=== PATIENT | male | born 1955 | race Caucasian/White ===

== ENCOUNTER 2021-03-09 11:59 | Emergency (ER) | payer OTHER ==
[2021-03-09 12:10] VITALS: BMI 31.3
[2021-03-09] MEDS ORDERED: SODIUM CHLORIDE 1,000 ML IV STA ×2 (13:39→18:23)
[2021-03-09] MEDS ORDERED: ACETAMINOPHEN 1000 MG/100 ML VIAL (NON FORMULARY) IVPB ONE (13:39)
[2021-03-09] MEDS ORDERED: ACETAMINOPHEN INJECTION 100 ML IVPB ONE (13:45)
[2021-03-09 14:30] LABS: BASO % 0.7 % (0-2.0); EOS % 0.8 % (0-4.5); HEMATOCRIT 45.8 % (35.4-49); HEMOGLOBIN 14.3 GM/dL (11.7-16.9); LYMPH % 16.3 % (8-40); MCH 20.1 pg (25.7-33.7); MCHC 31.2 g/dl (32.0-35.9); MEAN CELL VOLUME 64.4 fl (80-96); MEAN PLT VOLUME 8.4 fl (7.5-11.1); MONO % 7.1 % (3.8-10.2); NEUT % 75.1 % (42.8-82.8); PLATELET COUNT 357 10^3/uL (134-434); WHITE BLOOD COUNT 14.1 K/mm3 (4.0-10.0)
[2021-03-09 14:31] LABS: PH,URINE 6.5 (5.0-8.0); URINE APPEARANCE CLEAR; URINE BILIRUBIN NEGATIVE (NEGATIVE); URINE COLOR YELLOW; URINE GLUCOSE (UA) 3+ (NEGATIVE); URINE KETONE TRACE (NEGATIVE); URINE LEUK ESTERASE NEGATIVE (NEGATIVE); URINE NITRITE NEGATIVE (NEGATIVE); URINE PROTEIN NEGATIVE (NEGATIVE); URINE UROBILINOGEN 0.2 mg/dL (0.2-1.0)
[2021-03-09 14:44] LABS: INR 0.9 (0.83-1.09); PROTHROMBIN TIME (PATIENT) 10.9 SEC (9.7-13.0)
[2021-03-09 14:58] LABS: ALBUMIN 4.3 g/dl (3.4-5.0); CALCIUM 9.7 mg/dL (8.5-10.1)
[2021-03-09 15:01] LABS: CREATININE 0.8 mg/dL (0.55-1.3)
[2021-03-09 15:03] LABS: BILIRUBIN,TOTAL 0.5 mg/dL (0.2-1)
[2021-03-09 15:09] LABS: BLOOD UREA NITROGEN 14.4 mg/dL (7-18); TOT PROT 7.9 g/dl (6.4-8.2)
[2021-03-09 15:33] LABS: ANISOCYTOSIS 1+; MACROCYTOSIS 0; PLATELET ESTIMATE NORMAL; TARGET CELLS 1+; TEAR DROP CELLS 1+
[2021-03-09 18:19] LABS: LACTIC ACID 3.2 mmol/L (0.4-2.0)
[2021-03-09 18:52] VITALS: BP 124/85; PULSE 98; TEMP 98.6
== END 2021-03-09 18:58 | disposition left against medical advice (07) ==
LOC: JER 11:59
PROC: 3E0333Z Introduction of Anti-inflammatory into Peripheral Vein, Percutaneous Approach (ICD-10-PCS; principal; 2021-03-09)
PROC: 3E0337Z Introduction of Electrolytic and Water Balance Substance into Peripheral Vein, Percutaneous Approach (ICD-10-PCS; 2021-03-09)
PROC: 3E0337Z Introduction of Electrolytic and Water Balance Substance into Peripheral Vein, Percutaneous Approach (ICD-10-PCS; 2021-03-09)
DX: E87.2 Acidosis (principal); K56.609 Unspecified intestinal obstruction, unspecified as to partial versus complete obstruction; R10.9 Unspecified abdominal pain
CPT/HCPCS: 36415; 74177-TC; 80053; 81003; 83605; 83690; 85025; 85610; 87086; 93005; 93010; 99285-25; J0131; Q9967

== ENCOUNTER 2021-03-10 10:22 | Emergency (ER) | payer OTHER ==
[2021-03-10 10:50] VITALS: BP 104/68; PULSE 100; TEMP 97.6; BMI 34.4
[2021-03-10] MEDS ORDERED: ACETAMINOPHEN 1000 MG/100 ML VIAL (NON FORMULARY) IVPB ONE (12:43)
[2021-03-10] MEDS ORDERED: LACTATED RINGERS SOLUTION 1000 ML INFUS.BAG IV ONE (12:43)
[2021-03-10 13:06] LABS: CALCIUM 8.5 mg/dL (8.5-10.1); MAGNESIUM 2.4 mg/dL (1.8-2.4)
[2021-03-10 13:09] LABS: CREATININE 0.7 mg/dL (0.55-1.3)
[2021-03-10] MEDS ORDERED: ACETAMINOPHEN INJECTION 100 ML IVPB ONE (13:09)
[2021-03-10 13:11] LABS: BILIRUBIN,TOTAL 0.4 mg/dL (0.2-1); TOT PROT 6.3 g/dl (6.4-8.2)
[2021-03-10 13:15] LABS: ALBUMIN 3.4 g/dl (3.4-5.0); BASO % 0.5 % (0-2.0); EOS % 2.7 % (0-4.5); HEMATOCRIT 41.4 % (35.4-49); HEMOGLOBIN 12.8 GM/dL (11.7-16.9); LYMPH % 29.8 % (8-40); MEAN CELL VOLUME 64.3 fl (80-96); MONO % 6.4 % (3.8-10.2); NEUT % 60.6 % (42.8-82.8); PLATELET COUNT 287 10^3/uL (134-434); RBC 6.45 M/mm3 (4.00-5.60); RDW 16.1 % (11.9-15.9); WHITE BLOOD COUNT 12.6 K/mm3 (4.0-10.0)
[2021-03-10 13:20] LABS: MCH 19.9 pg (25.7-33.7)
[2021-03-10] MEDS ORDERED: DEXTROSE 5%-WATER - 1,000 ML IV ONE (13:34)
[2021-03-10] MEDS ORDERED: DEXTROSE 5%-WATER - 500 ML IV ONE (13:34)
== END 2021-03-10 16:10 | disposition home or self-care (01) ==
LOC: JER 10:22
PROC: 3E0333Z Introduction of Anti-inflammatory into Peripheral Vein, Percutaneous Approach (ICD-10-PCS; principal; 2021-03-10)
PROC: 3E033GC Introduction of Other Therapeutic Substance into Peripheral Vein, Percutaneous Approach (ICD-10-PCS; 2021-03-10)
DX: K56.609 Unspecified intestinal obstruction, unspecified as to partial versus complete obstruction (principal); R10.84 Generalized abdominal pain
CPT/HCPCS: 36415; 74019-TC-FY; 80053; 83605; 83735; 85025; 99284-25; C9803; J0131; U0003; U0005

== ENCOUNTER 2023-10-10 10:09 | Inpatient (IN) | payer OTHER ==
[2023-10-10 10:22] VITALS: BMI 31.3
[2023-10-10] MEDS ORDERED: SODIUM CHLORIDE 0.9% 500 ML INFUS.BAG IV ONE ×3 (11:07→15:00)
[2023-10-10] MEDS ORDERED: ONDANSETRON 4 MG/2 ML VIAL IVPUSH ONE (11:07)
[2023-10-10] MEDS ORDERED: ACETAMINOPHEN 1000 MG/100 ML BAG IVPB ONE (11:07)
[2023-10-10] MEDS ORDERED: ONDANSETRON 4 MG/2 ML VIAL ONE (11:24)
[2023-10-10] MEDS ORDERED: ACETAMINOPHEN INJECTION 100 ML IVPB ONE (11:24)
[2023-10-10 11:27] LABS: BASO % 0.1 % (0-2.0); EOS % 3.7 % (0-4.5); HEMATOCRIT 42.3 % (35.4-49); HEMOGLOBIN 13.3 GM/dL (11.7-16.9); LYMPH % 8.6 % (8-40); MCH 20.3 pg (25.7-33.7); MCHC 31.3 g/dl (32.0-35.9); MEAN CELL VOLUME 64.7 fl (80-96); MONO % 4.9 % (3.8-10.2); NEUT % 82.7 % (42.8-82.8); PLATELET COUNT 252 10^3/uL (134-434); RBC 6.54 M/mm3 (4.00-5.60); RDW 16.1 % (11.9-15.9); WHITE BLOOD COUNT 7.8 K/mm3 (4.0-10.0)
[2023-10-10 12:09] LABS: POTASSIUM 4.4 mmol/L (3.5-5.1)
[2023-10-10 12:13] LABS: ALBUMIN 3.6 g/dl (3.4-5.0)
[2023-10-10 12:14] LABS: BLOOD UREA NITROGEN 21.2 mg/dL (7-18); MAGNESIUM 1.7 mg/dL (1.8-2.4)
[2023-10-10 12:17] LABS: CREATININE 1.1 mg/dL (0.55-1.3)
[2023-10-10 12:18] LABS: BILIRUBIN,TOTAL 0.5 mg/dL (0.2-1); TOT PROT 6.8 g/dl (6.4-8.2)
[2023-10-10 12:20] LABS: LACTIC ACID 2.4 mmol/L (0.4-2.0)
[2023-10-10] MEDS ORDERED: MAGNESIUM 1GM/D5W - 1 GM/100 ML IVPB IVPB ONE (12:20)
[2023-10-10] MEDS ORDERED: MAGNESIUM SULFATE IN WATER 2 GM/50 ML IVPB IVPB ONE (12:23)
[2023-10-10 12:26] LABS: ANISOCYTOSIS 2+; MACROCYTOSIS 0
[2023-10-10] MEDS ORDERED: DEXTROSE 5%-LACTATED RINGERS 1,000 ML IV SCH (18:15)
[2023-10-10] MEDS: ATORVASTATIN CA 10 MG TABLET (FP) PO SCH (21:06)
[2023-10-10] MEDS: INSULIN ASPART SLIDING SCALE (NOVOLOG) 1 VIAL SQ SCH (21:07)
[2023-10-10] MEDS ORDERED: NORTRIPTYLINE HCL 50 MG CAPSULE PO SCH (22:00)
[2023-10-11] MEDS: INSULIN ASPART SLIDING SCALE (NOVOLOG) 1 VIAL SQ SCH ×4 (06:19→21:26)
[2023-10-11] MEDS ORDERED: GLIMEPIRIDE 2 MG TABLET PO SCH (07:00)
[2023-10-11] MEDS: GABAPENTIN 100 MG CAPSULE PO SCH (10:21)
[2023-10-11] MEDS: SOLIFENACIN SUCCINATE 5 MG TAB PO SCH (10:21)
[2023-10-11] MEDS: LISINOPRIL 10 MG TABLET PO SCH (10:21)
[2023-10-11] MEDS: buPROPion HCL 75 MG TABLET PO SCH (10:21)
[2023-10-11] MEDS: metoPROLOL SUCCINATE 25 MG TAB.SR.24H (FP) PO SCH (10:21)
[2023-10-11] MEDS: TAMSULOSIN HCL 0.4 MG CAP PO SCH (10:21)
[2023-10-11] MEDS: ENOXAPARIN NA (PORCINE) 40 MG/0.4 ML DISP.SYRIN SQ SCH (10:22)
[2023-10-11] MEDS: EMPAGLIFLOZIN (JARDIANCE) 10 MG TABLET PO SCH (10:23)
[2023-10-11] MEDS: TOLTERODINE TARTRATE LA 4 MG CAP.SR.24H (FP) PO SCH (10:23)
[2023-10-11] MEDS: DIVALPROEX SODIUM 500 MG TABLET E.C. PO SCH (10:25)
[2023-10-11] MEDS: ACETAMINOPHEN 325 MG TABLET (FP) PO PRN ×2 (10:25→16:23)
[2023-10-11 10:34] LABS: BASO % 0.2 % (0-2.0); EOS % 12.2 % (0-4.5); HEMOGLOBIN 11.2 GM/dL (11.7-16.9); LYMPH % 27.9 % (8-40); MCH 20.1 pg (25.7-33.7); MCHC 31.2 g/dl (32.0-35.9); MEAN CELL VOLUME 64.5 fl (80-96); MEAN PLT VOLUME 8.8 fl (7.5-11.1); MONO % 7.8 % (3.8-10.2); NEUT % 51.9 % (42.8-82.8); PLATELET COUNT 218 10^3/uL (134-434); RBC 5.57 M/mm3 (4.00-5.60); WHITE BLOOD COUNT 8.6 K/mm3 (4.0-10.0)
[2023-10-11 10:48] LABS: POTASSIUM 4.3 mmol/L (3.5-5.1)
[2023-10-11 10:56] LABS: BLOOD UREA NITROGEN 13.6 mg/dL (7-18); MAGNESIUM 2.1 mg/dL (1.8-2.4)
[2023-10-11 10:59] LABS: CREATININE 0.6 mg/dL (0.55-1.3); PHOSPHOROUS 2.5 mg/dL (2.5-4.9)
[2023-10-11 11:00] LABS: BILIRUBIN,TOTAL 0.5 mg/dL (0.2-1); TOT PROT 5.3 g/dl (6.4-8.2)
[2023-10-11 11:04] LABS: ALBUMIN 2.7 g/dl (3.4-5.0)
[2023-10-11] MEDS: NORTRIPTYLINE HCL 25 MG CAPSULE PO SCH (21:26)
[2023-10-11] MEDS: ATORVASTATIN CA 10 MG TABLET (FP) PO SCH (21:26)
[2023-10-12] MEDS: INSULIN ASPART SLIDING SCALE (NOVOLOG) 1 VIAL SQ SCH ×4 (06:39→22:33)
[2023-10-12] MEDS: ACETAMINOPHEN 325 MG TABLET (FP) PO PRN (08:31)
[2023-10-12] MEDS: TAMSULOSIN HCL 0.4 MG CAP PO SCH (08:32)
[2023-10-12] MEDS: GABAPENTIN 100 MG CAPSULE PO SCH (10:04)
[2023-10-12] MEDS: LISINOPRIL 10 MG TABLET PO SCH (10:04)
[2023-10-12] MEDS: metoPROLOL SUCCINATE 25 MG TAB.SR.24H (FP) PO SCH (10:04)
[2023-10-12] MEDS: SOLIFENACIN SUCCINATE 5 MG TAB PO SCH (10:04)
[2023-10-12] MEDS: buPROPion HCL 75 MG TABLET PO SCH (10:04)
[2023-10-12] MEDS: ENOXAPARIN NA (PORCINE) 40 MG/0.4 ML DISP.SYRIN SQ SCH (10:05)
[2023-10-12] MEDS: DIVALPROEX SODIUM 500 MG TABLET E.C. PO SCH (10:06)
[2023-10-12] MEDS: TOLTERODINE TARTRATE LA 4 MG CAP.SR.24H (FP) PO SCH (10:06)
[2023-10-12] MEDS: EMPAGLIFLOZIN (JARDIANCE) 10 MG TABLET PO SCH (10:07)
[2023-10-12] MEDS: NORTRIPTYLINE HCL 25 MG CAPSULE PO SCH (22:32)
[2023-10-12] MEDS: ATORVASTATIN CA 10 MG TABLET (FP) PO SCH (22:33)
[2023-10-13] MEDS: INSULIN ASPART SLIDING SCALE (NOVOLOG) 1 VIAL SQ SCH ×2 (06:09→11:46)
[2023-10-13] MEDS: TAMSULOSIN HCL 0.4 MG CAP PO SCH (08:27)
[2023-10-13 08:52] VITALS: RESP 16
[2023-10-13] MEDS: ENOXAPARIN NA (PORCINE) 40 MG/0.4 ML DISP.SYRIN SQ SCH (10:27)
[2023-10-13] MEDS: SOLIFENACIN SUCCINATE 5 MG TAB PO SCH (10:27)
[2023-10-13] MEDS: buPROPion HCL 75 MG TABLET PO SCH (10:27)
[2023-10-13] MEDS: GABAPENTIN 100 MG CAPSULE PO SCH (10:28)
[2023-10-13] MEDS: EMPAGLIFLOZIN (JARDIANCE) 10 MG TABLET PO SCH (10:28)
[2023-10-13] MEDS: DIVALPROEX SODIUM 500 MG TABLET E.C. PO SCH (10:28)
[2023-10-13] MEDS: TOLTERODINE TARTRATE LA 4 MG CAP.SR.24H (FP) PO SCH (10:28)
[2023-10-13] MEDS: LISINOPRIL 10 MG TABLET PO SCH (10:59)
[2023-10-13] MEDS: metoPROLOL SUCCINATE 25 MG TAB.SR.24H (FP) PO SCH (10:59)
[2023-10-13 14:39] VITALS: BP 128/80; PULSE 76; TEMP 97.5
== END 2023-10-13 15:09 | disposition home or self-care (01) | DRG 390 ==
LOC: JER 10:09 → INTOOBSV 16:11 → UNDOADMOB 16:11 → JERBED 16:11 → J6S 18:27 → OBSVTOIN 10-11 11:49
PROVIDERS: ADMIT Internal Medicine; ATTEND Internal Medicine
DX: K56.600 Partial intestinal obstruction, unspecified as to cause (principal); E11.9 Type 2 diabetes mellitus without complications; I10 Essential (primary) hypertension; F41.9 Anxiety disorder, unspecified; E78.5 Hyperlipidemia, unspecified; R32 Unspecified urinary incontinence; F31.9 Bipolar disorder, unspecified; F25.9 Schizoaffective disorder, unspecified; E87.6 Hypokalemia
CPT/HCPCS: 36415; 74019-TC-FY; 74177-TC; 80053; 82962; 83605; 83690; 83735; 84100; 85025; 87635; 99285-25; G0378; J0131

== ENCOUNTER 2024-02-21 15:07 | Emergency (ER) | payer OTHER ==
[2024-02-21 16:06] VITALS: BP 102/61; PULSE 95; RESP 17; TEMP 97.9; BMI 31.3
[2024-02-21] MEDS: ACETAMINOPHEN 500 MG TABLET (FP) PO ONE (17:02)
== END 2024-02-21 18:47 | disposition home or self-care (01) ==
LOC: JER 15:07
DX: S09.90XA Unspecified injury of head, initial encounter (principal); G44.319 Acute post-traumatic headache, not intractable; W01.198A Fall on same level from slipping, tripping and stumbling with subsequent striking against other object, initial encounter
CPT/HCPCS: 70450-TC; 72125-TC; 99284-25

== ENCOUNTER 2024-05-28 20:25 | Emergency (ER) | payer OTHER ==
[2024-05-28 20:35] VITALS: BP 102/69; PULSE 82; RESP 16; TEMP 98.4; BMI 28.8
== END 2024-05-28 23:51 | disposition home or self-care (01) ==
LOC: JER 20:25
DX: R51.9 Headache, unspecified (principal); M54.2 Cervicalgia; W10.8XXA Fall (on) (from) other stairs and steps, initial encounter
CPT/HCPCS: 70450-TC; 72125-TC; 99284-25

== ENCOUNTER 2024-09-15 09:29 | Emergency (ER) | payer OTHER ==
[2024-09-15 09:40] VITALS: TEMP 97.9; BMI 28.1
[2024-09-15] MEDS ORDERED: ACETAMINOPHEN 325 MG TABLET (FP) ONE (10:36)
[2024-09-15] MEDS: ACETAMINOPHEN 500 MG TABLET (FP) PO ONE (10:40)
[2024-09-15 15:35] VITALS: BP 124/70; PULSE 97; RESP 16
== END 2024-09-15 15:36 ==
LOC: JER 09:29
DX: S00.93XA Contusion of unspecified part of head, initial encounter (principal); W01.198A Fall on same level from slipping, tripping and stumbling with subsequent striking against other object, initial encounter
CPT/HCPCS: 70450-TC; 72125-TC; 73562-TC-LT-FY; 99284-25